=== PATIENT | male | born 1950 | race Caucasian/White ===

== ENCOUNTER 2023-02-27 22:54 | Emergency (ER) | payer OTHER, SELFPAY ==
[2023-02-27 22:55] VITALS: BP 162/98; PULSE 76; RESP 16; TEMP 37.1; O2SAT 97; BMI 27.6
--- NOTE | 2023-02-27 23:20 | RAD_ITS ---
EXAM: XR LEFT FEMUR, 2 VIEWS CLINICAL INDICATION: None provided. pain TECHNIQUE: Frontal and lateral views of the left femur. COMPARISON: No relevant prior studies available. FINDINGS: BONES/JOINTS: There is a bipartite patella. No acute fracture. No subluxation. Normal alignment. Preservation of the joint space. No sclerotic or destructive changes observed. SOFT TISSUES: Unremarkable. No soft tissue swelling or gas. No radiopaque foreign body. RAD/Femur Min 2 Views IMPRESSION: No acute findings in the left femur. Electronically Signed: Yash Kenney MD at 23:45 EDT ,
[2023-02-27 23:37] LABS: Absolute Lymphocyte Count 1.29 X10^3/uL (0.83-4.51); Absolute Neutrophil Count 8.1 X10^3/uL (2.0-7.7); Basophil# 0.02 X10^3/uL; Basophil% 0.2 % (0-1); Eosinophil# 0.18 X10^3/uL; Eosinophils% 1.8 % (0-5); Hemoglobin 14.6 g/dL (13.0-16.5); Lymphocyte # 1.29 X10^3/ul (0.83-4.51); Lymphocyte % 12.7 % (19-41); Mean Corpuscular Hgb 29.9 pg (27.0-32.0); Mean Corpuscular Volume 87.9 fL (80-94); Mean Platelet Vol. 9.6 fl (6.2-12.0); Monocyte# 0.56 X10^3/uL; Monocyte% 5.5 % (0-10); NRBC Flagged by Analyzer 0 % (0-5); Neutrophil % 79.4 % (47-70); Platelet Count 194 K/mm3 (150-450); RBC Distribution Width CV 12.8 % (11.6-14.6); RBC Distribution Width SD 40.8 fl (35.1-43.9); Red Blood Count 4.89 M/mm3 (4.6-6.2); White Blood Count 10.2 K/mm3 (4.4-11.0)
[2023-02-27 23:55] LABS: Anion Gap 6 (5-15); BUN 23 mg/dL (7-18); BUN/Creat Ratio 19.5 RATIO (10-20); CPK Total, Creatine Kinase 384 U/L (39-308); Calcium,Total 9.3 mg/dL (8.5-10.1); Chloride 108 mmol/L (98-107); Creatinine, Serum 1.18 mg/dL (0.70-1.30); EST Glomerular Filtration Rate 65 mL/min (>60); Est Glom Filt Rate - Afr Amer 78 mL/min (>60); Estimated Creatinine Clearance 55.55 ml/min; Glucose 95 mg/dL (74-106); Sodium Level 140 mmol/L (136-145)
--- NOTE | 2023-02-28 01:34 | EDS_ITS ---
HPI History of Present Illness Chief Complaint: Lower Extremity Injury Informant: patient Onset/Context/Timing Onset: Hours Context: Gradual Onset Timing: Continuous Quality of Pain: Aching and - (Cramping) Location: Left thigh anterior and laterally Current Severity: Moderate Maximum Severity: Severe Worsened by: Moving left lower extremity Relieved by: Resting Associated Symptoms Associated Symptoms: Negative for Parasthesia, Weakness or Loss of Funtion Narrative Narrative: Patient states he was mushroom hunting recently, and doing a lot of [place]. He received a tick bite on his left thigh, he states it was on there for less than an hour and he removed it, and it has not bothered him since and that was about 2 days ago. Tonight, he started getting severe pain in his left thigh and it would not go away. He denies any numbness or tingling. He denies any pain above or below the thigh. He has been able to walk but it is painful. Denies any low back pain, bowel or bladder dysfunction, or any other symptoms. Denies any known injury. The states he gets severe muscle cramps all of the time. PFSH PFSH Medical History no medical history no medical history Allergy/AdvReac Type Severity Reaction Status Date / Time No Known Allergies Allergy Verified 02/27/23 22:56 Social History Smoking Status: Never smoker ROS ROS ED Constitutional Constitutional ED: Denies chills or fever(s) Musculoskeletal Musculoskeletal: Reports extremity pain; Denies neck pain Integumentary Denies Abrasions, rash or wounds Neurologic Neurologic: Denies paresthesias or weakness EXAM Physical Exam Const Vital Signs: 02/27/23 22:55 02/28/23 03:03 Temperature 98.7 F Temperature Source Temporal Pulse Rate 76 67 Respiratory Rate 16 15 Blood Pressure 162/98 H 142/81 H Blood Pressure Mean 119 101 Pulse Ox 97 96 Oxygen Delivery Method Room Air Room Air Positive well nourished and well developed General Appearance ED: well developed and NAD Neck full ROM and supple Back/Spine normal ROM and normal to inspection Extremity normal to inspection Extremity Narrative: All compartments of the left thigh are soft and nondistended. He is tender in the anterior left thigh and laterally, and nowhere else. Superficially, the skin is nontender. The tick bite is medially, there is a scant amount of erythema at that area, as well as a scab, it is nontender and there are no signs of an infection or foreign material that is residual. He has full range of motion of the knee and the hip but he has pain whenever he flexes the left thigh and so is limited with regards to that. 2+/4 dorsalis pedis pulse distally. Neuro oriented x3, no focal motor deficits and no sensory deficits noted Sensorium / Orientation: alert Psych mental status grossly normal and thought process normal Skin no wounds Rashes: no rashes MDM MDM MDM Narrative Medical decision making narrative: X-rays of the left femur were obtained 4 views of mitral rotation negative for any bony or subcutaneous air abnormality. Radiology in agreement. Labs are unremarkable except for slightly elevated CPK, this is not consistent with acute rhabdomyolysis, and he was a little dehydrated with some prerenal azotemia that was mild. I gave him some IV fluids, orphenadrine, and low-dose of Toradol. He felt better on reevaluation and stable for discharge home. Likely muscle cramping. Lab Data Attestation: I reviewed the patient's lab results. Labs: Laboratory Results - last 24 hr 02/27/23 02/27/23 23:30 23:30 WBC 10.2 RBC 4.89 Hgb 14.6 Hct 43.0 MCV 87.9 MCH 29.9 MCHC 34.0 RDW Std Deviation 40.8 RDW Coeff of Lianet 12.8 Plt Count 194 MPV 9.6 Immature Gran % (Auto) 0.400 Neut % (Auto) 79.4 H Lymph % (Auto) 12.7 L [place]ite % (Auto) 5.5 Eos % (Auto) 1.8 Baso % (Auto) 0.2 Absolute Neuts (auto) 8.1 H Absolute Lymphs (auto) 1.29 Nucleated RBC % 0 Sodium 140 Potassium 4.0 Chloride 108 H Carbon Dioxide 26.0 Anion Gap 6 BUN 23 H Creatinine 1.18 Estim Creat Clear Calc 55.55 Est GFR (MDRD) Af Amer 78 Est GFR (MDRD) Non-Af 65 BUN/Creatinine Ratio 19.5 Glucose 95 Calcium 9.3 Total Creatine Kinase 384 H Radiography Diagnostic Testing: Clinical Impression(s) from Imaging Studies Femur X-Ray 02/27/23 23:20 IMPRESSION: No acute findings in the left femur. Electronically Signed: Yash Kenney MD at 23:45 EDT , Discharge Plan Triage Chief Complaint: Lower Extremity Injury ED Provider: Khanh Smith Dx/Rx/DC Orders Clinical Impression: Muscle cramp Instructions: ED Muscle Spasm Primary Care Provider: Jersey Holguin Referrals: Jersey Holguin DO [Primary Care Provider] - 3-5 Days if not improving Disposition Disposition: Home, Self Care
[2023-02-28] MEDS: Ketorolac 15 MG/ML Vial IV (01:46)
[2023-02-28] MEDS: Orphenadrine 60 MG/2 ML Ampul IV (01:48)
[2023-02-28 03:03] VITALS: BP 142/81; PULSE 67; RESP 15; O2SAT 96
[2023-02-28 03:46] VITALS: BP 122/84; PULSE 71; RESP 16; O2SAT 98
== END 2023-02-28 03:46 | disposition home or self-care (01) ==
PROVIDERS: Emergency Medicine; Emergency Provider Emergency Medicine; PCP Family Medicine; Visit Provider Emergency Medicine
DX: R25.2 Cramp and spasm (principal); S70.362A Insect bite (nonvenomous), left thigh, initial encounter; W57.XXXA Bitten or stung by nonvenomous insect and other nonvenomous arthropods, initial encounter
CPT/HCPCS: 73552; 80048; 82550; 85025; 96361; 96374; 96375; 99283; J7030; A4216